=== PATIENT | female | born 1935 | race Hispanic/Latino ===

== ENCOUNTER → 2017-09-18 | Outpatient (CLI) | payer MEDICARE ==
[~2017-09-18] MED LIST: IOPAMIDOL 370 MG/ML 200 ML INFUS..BTL INJ ONE; SODIUM CHLORIDE 0.9% 50ML 50 ML ONE
[2017-09-18 08:51] LABS: BLOOD UREA NITROGEN 17 mg/dL (7-26); BUN/CREATININE RATIO 22 (6-25); CREATININE, SERUM 0.78 mg/dL (0.57-1.11); EST GLOMERULAR FILTRATION RATE > 60 ML/MIN (60-)
--- NOTE | 2017-09-19 12:37 | Diagnostic Imaging Report ---
EXAMINATION: CT of the neck with contrast HISTORY: Follow-up mass COMPARISON: Neck CT on 08/19/2016 TECHNIQUE: Multidetector helical axial images were obtained from the sternal notch through the skull base during intravenous infusion of iodinated contrast material. Images were reconstructed using soft tissue and bone algorithms and were viewed in multiplanar format. Intravenous contrast: 100 mL of Omnipaque. FINDINGS: Thyroid gland: Markedly enlarged heterogeneous thyroid gland. Gland extends inferiorly to the level of the sternal manubrium. Local mass effect results in mild narrowing of the upper airway with partial effacement of the right inferior oropharyngeal, right hypopharyngeal and right supraglottic airway with effacement of the right piriform sinus. The trachea is moderately narrowed at the level of the thoracic inlet and measures. Unchanged multiple nodules in the right thyroid lobe with dominant heterogeneous low density nodule with in the right superior thyroid lobe about 2.7 cm. Additional heterogeneously enhancing 1.5 cm lesion in the right superior thyroid lobe, medial to the dominant nodule. Subcentimeter partially calcified nodules in the right inferior thyroid lobe. Nodes: Mildly enhancing subcentimeter submandibular IA and right intraparotid (deep and superficial lobes) lymph nodes are nonspecific. No additional enlarged, enhancing, calcified or necrotic lymph nodes. Sinuses: Imaged portions unremarkable. Oral cavity: Unremarkable. Parotid glands: Multiple enhancing nodules in both superficial and deep lobes of the right parotid gland which are mostly subcentimeter. Largest measures 1.2 cm in the superficial lobe. The left parotid gland is homogeneous and normal in size and contains a few small nonenlarged intraparotid lymph nodes. Normal left parotid gland. Submandibular glands: Normal Pharynx: Partially compressed right side of the hypopharynx by the above-mentioned enlarged thyroid gland Larynx: Unremarkable. Thyroid gland: Unremarkable. Upper esophagus: Unremarkable. Blood vessels: Arteries and veins are patent. The common carotid arteries and internal jugular veins are displaced laterally by enlarged the thyroid gland. The left vertebral artery arises directly off the aortic arch. Bones: Stable mild degenerative changes of the cervical spine at C6-C7. IMPRESSION: 1. Unchanged multinodular goiter with mild narrowing of the trachea compared to prior neck CT on 08/19/2016 and 11/14/2015 2. Stable nonspecific mildly prominent intraparotid lymph nodes on the right side. Signed by: Dr. Tamara Roberts M.D. on 09/19/2017 12:34 PM
== END ==
LOC: CT 07:50
PROVIDERS: ATTEND Otolaryngology
DX: R22.1 Localized swelling, mass and lump, neck (principal); D49.0 Neoplasm of unspecified behavior of digestive system; J98.8 Other specified respiratory disorders
CPT/HCPCS: 36415; 70491; 82565; 84520; Q9967

== ENCOUNTER → 2019-01-26 | Outpatient (CLI) | payer MEDICARE ==
--- NOTE | 2019-01-26 16:14 | Diagnostic Imaging Report ---
BILATERAL OS CALCIS - 2 Images EACH HISTORY: Pain, heel pain, 3 months COMPARISON: None available. FINDINGS: Bones: No acute displaced fracture. No aggressive osseous lesion. Large bilateral plantar and dorsal calcaneal enthesophytes, chronic fragmentation of the dorsal enthesophyte. Enthesopathic changes at the bases of the fifth metatarsal bones. Joints: Osseous alignment is within normal limits and the joint spaces are well-maintained. Soft tissues: The soft tissues appear unremarkable. IMPRESSION: Chronic multifocal enthesopathy. Signed by: Dr. Pola Mae D.O., M.M.M. on 01/26/2019 4:10 PM
== END ==
LOC: RAD 14:45
PROVIDERS: ATTEND Family Medicine
DX: M79.672 Pain in left foot (principal); M79.671 Pain in right foot; M77.8 Other enthesopathies, not elsewhere classified

== ENCOUNTER → 2020-04-03 | Outpatient (CLI) | payer MEDICARE ==
--- NOTE | 2020-04-03 15:00 | Diagnostic Imaging Report ---
History: Multinodular thyroid goiter Comparison studies: Soft tissue neck CT of 09/18/2017, and 11/14/2015. Technique: Axial, coronal and sagittal images from the skull base to the thoracic inlet. Coronal and sagittal images reconstructed from the axial data. Dose modulation, iterative reconstruction, and/or weight based adjustment of the mA/kV was utilized to reduce the radiation dose to as low as reasonably achievable. Intravenous contrast: 100 cc of Omnipaque 300. Findings: Exam is performed without IV contrast which limits evaluation of the soft tissues and vasculature. Thyroid gland: Enlarged heterogeneous thyroid gland which extends extends inferiorly to the level of the sternal manubrium and superiorly to the level of the hyoid bone on the right. Local mass effect results in unchanged mild narrowing of the upper airway in partial effacement of the right oropharynx and right hypopharynx. There is persistent narrowing of the trachea the level of the thoracic inlet with diameter which measures approximately 1.0 cm TV x 1.7 cm AP. Right thyroid lobe measures: Approximately 11.0 x 5.0 x 5.0 cm (SI x AP x TV). Left thyroid lobe measures approximately 10.0 x 5.2 x 3.8 cm. Thyroid isthmus measures approximately 1.4 cm in greater AP dimension. There are multiple thyroid nodules. Largest nodule in the right superior thyroid lobe measures approximately 4.0 cm and has increased from the prior exams (previously 3.6 cm on 09/18/2017 and 3.0 cm on 11/14/2015). Small calcified nodule in the left upper thyroid lobe is unchanged. Parotid glands: Multiple enhancing nodules in both superficial and deep lobes of the right thyroid gland are unchanged. Left thyroid gland is homogeneous and normal in size. Soft tissues: No abnormalities. Masses: None. Lymph nodes: No radiographically significant adenopathy. Vessels: Cannot evaluate in the absence of IV contrast Submandibular glands: Homogeneous, normal in size. The right submandibular gland is displaced anteriorly enlarged right thyroid gland/nodule. Orbits: Bilateral intraocular lens replacements. Paranasal sinuses: Clear. Temporal bones: No abnormalities. Skull base and facial bones: Intact. Cervical spine: Reversal usual cervical lordotic curvature centered at C6-C7 where there is moderate disc degeneration and at least mild canal stenosis due to disc osteophyte complex. Unchanged moderate foraminal stenosis on the left due to uncovertebral facet arthrosis. Multilevel facet arthrosis. Incidental findings: Partially imaged leads from a cardiac device implanted in the left chest wall. IMPRESSION: 1. Multinodular thyroid goiter with unchanged mass effect on the upper aerodigestive tract and associated tracheal narrowing. Nodule in the right superior thyroid lobe has progressively increased in size. 2. Unchanged nonspecific enlarged right intraparotid lymph nodes. Signed by: Dr. Johnathan Mclean M.D. on 04/03/2020 2:56 PM
== END ==
LOC: CT 11:46
PROVIDERS: ATTEND Otolaryngology
DX: E04.2 Nontoxic multinodular goiter (principal); J98.8 Other specified respiratory disorders; D49.0 Neoplasm of unspecified behavior of digestive system
CPT/HCPCS: 70490